=== PATIENT | male | born 1945 | race Caucasian/White ===

== ENCOUNTER → 2018-03-26 07:43 | Outpatient (CLI) | payer MEDICARE, OTHER, SELFPAY ==
[2018-03-26 09:09] LABS: Alanine Aminotransferase 25 IU/L (21-72); Albumin 4.4 g/dL (3.5-5.0); Albumin Globulin Ratio 1.6 (1.0-2.8); Alkaline Phosphatase 73 U/L (38-126); Aspartate Aminotransferase 22 IU/L (17-59); BUN Creatinine Ratio 22.5 (6-22); Bilirubin Total 0.8 mg/dL (0.2-1.3); Blood Urea Nitrogen 18 mg/dL (9-20); Calcium 9.3 mg/dL (8.4-10.2); Carbon Dioxide 32 mmol/L (22-32); Chloride 99 mmol/L (98-107); Cholesterol 171 mg/dL (140-199); Estimated Glomerular Filt Rate > 60.0 mL/min (>60); Globulin 2.8 g/dL (1.7-4.1); Glucose 91 mg/dL (80-110); HDL Cholesterol 54 mg/dL (40-60); HEMOLYSIS < 15 (0-50); LDL Cholesterol Calculated 86 mg/dL (<100); Potassium 4.6 mmol/L (3.4-5.1); Sodium 142 mmol/L (137-145); Total Protein 7.2 g/dL (6.3-8.2); Triglycerides 156 mg/dL (35-150)
== END ==
PROVIDERS: PCP Family Medicine; Visit Provider Family Medicine
DX: E78.5 Hyperlipidemia, unspecified (principal); I10 Essential (primary) hypertension; Z12.5 Encounter for screening for malignant neoplasm of prostate
CPT/HCPCS: 36415; 80053; 80061; G0103

== ENCOUNTER → 2018-04-17 07:51 | Outpatient (CLI) | payer MEDICARE, OTHER, SELFPAY | PROVIDERS: PCP Family Medicine; Visit Provider Family Medicine | DX: F52.21 Male erectile disorder (principal) | CPT/HCPCS: 36415; 84403 ==

== ENCOUNTER → 2018-10-14 08:18 | Outpatient (CLI) | payer MEDICARE, OTHER, SELFPAY ==
[2018-10-14 09:38] LABS: Alanine Aminotransferase 31 IU/L (21-72); Albumin 4.7 g/dL (3.5-5.0); Albumin Globulin Ratio 1.4 (1.0-2.8); Alkaline Phosphatase 64 U/L (38-126); Aspartate Aminotransferase 26 IU/L (17-59); Bilirubin Total 0.8 mg/dL (0.2-1.3); Blood Urea Nitrogen 22 mg/dL (9-20); Calcium 8.4 mg/dL (8.4-10.2); Carbon Dioxide 27 mmol/L (22-32); Chloride 93 mmol/L (98-107); Cholesterol 157 mg/dL (140-199); Estimated Glomerular Filt Rate > 60.0 mL/min (>60); Globulin 3.4 g/dL (1.7-4.1); Glucose 120 mg/dL (80-110); HDL Cholesterol 58 mg/dL (40-60); HEMOLYSIS < 15 (0-50); LDL Cholesterol Calculated 81 mg/dL (<100); Potassium 3.5 mmol/L (3.4-5.1); Sodium 136 mmol/L (137-145); Total Protein 8.1 g/dL (6.3-8.2); Triglycerides 89 mg/dL (35-150)
== END ==
PROVIDERS: PCP Family Medicine; Visit Provider Family Medicine
DX: E78.5 Hyperlipidemia, unspecified (principal); I10 Essential (primary) hypertension
CPT/HCPCS: 36415; 80053; 80061

== ENCOUNTER → 2019-04-16 12:50 | Outpatient (CLI) | payer MEDICARE, OTHER, SELFPAY ==
[2019-04-16 13:15] LABS: Hematocrit 45.7 % (41-53); Hemoglobin 15.8 g/dL (13.5-17.5); Mean Corpuscular HGB Conc 34.4 % (30-36); Mean Corpuscular Hemoglobin 32.9 PG (26-34); Mean Corpuscular Volume 95.6 fL (80-100); Platelet Count 183 X10^3/uL (150-400); Red Blood Cell Count 4.78 X10^6/uL (4.5-5.9); Red Cell Distribution Width 13.8 % (11.6-14.8); White Blood Cell Count 4.7 X10^3/uL (4.5-11.0)
[2019-04-16 13:23] LABS: Add Manual Diff / Slide Review YES
[2019-04-16 13:37] LABS: Hemoglobin A1C% w Est Avg Glu 5.2 % (4.0-6.0)
[2019-04-16 13:46] LABS: Neutrophils Absolute Manual 2115 /uL (3000-5900); RBC Morphology Normal Morphology; Total Cells Counted 100
[2019-04-16 14:03] LABS: Alanine Aminotransferase 26 IU/L (21-72); Albumin 4.5 g/dL (3.5-5.0); Albumin Globulin Ratio 1.5 (1.0-2.8); Alkaline Phosphatase 72 U/L (38-126); Aspartate Aminotransferase 30 IU/L (17-59); BUN Creatinine Ratio 17.8 (6-22); Bilirubin Total 0.8 mg/dL (0.2-1.3); Blood Urea Nitrogen 16 mg/dL (9-20); Calcium 9.4 mg/dL (8.4-10.2); Carbon Dioxide 28 mmol/L (22-32); Chloride 95 mmol/L (98-107); Cholesterol 160 mg/dL (140-199); Estimated Glomerular Filt Rate > 60.0 mL/min (>60); Globulin 3.1 g/dL (1.7-4.1); Glucose 103 mg/dL (80-110); HDL Cholesterol 52 mg/dL (40-60); HEMOLYSIS < 15 (0-50); LDL Cholesterol Calculated 77 mg/dL (<100); Potassium 3.8 mmol/L (3.4-5.1); Sodium 137 mmol/L (137-145); Total Protein 7.6 g/dL (6.3-8.2); Triglycerides 156 mg/dL (35-150)
[2019-04-16 14:27] LABS: Prostate Specific Antigen Scrn 0.828 ng/mL (0.1-4.0)
== END ==
PROVIDERS: PCP Family Medicine; Visit Provider Family Medicine
DX: E78.5 Hyperlipidemia, unspecified (principal); I10 Essential (primary) hypertension; R73.09 Other abnormal glucose; Z12.5 Encounter for screening for malignant neoplasm of prostate
CPT/HCPCS: 36415; 80053; 80061; 83036; 85025; G0103

== ENCOUNTER 2019-04-23 20:01 | Emergency (ER) | payer MEDICARE, OTHER, SELFPAY ==
[2019-04-23] VITALS (9 sets, daily range): BP systolic 122–149; BP diastolic 70–90; PULSE 82–94; RESP 13–21; TEMP 36.6; O2SAT 94–99
--- NOTE | 2019-04-23 20:13 | DI.RAD.S_ITS ---
PROCEDURE: XR CHEST 1V INDICATIONS: chest pain TECHNIQUE: One view of the chest was acquired. COMPARISON: None. FINDINGS: Surgical changes and devices: None. Lungs and pleura: No acute consolidation. Scattered subsegmental atelectasis and/or scarring. No pleural effusion. No pneumothorax. Mediastinum: Mediastinal contours appear normal. Heart size is normal. Bones and chest wall: No suspicious bony lesions. Overlying soft tissues appear unremarkable. Lateral curvature of the spine IMPRESSION: No acute disease Dictated by: Walker Casey M.D. on 04/23/2019 at 20:56 Approved by: Walker Casey M.D. on 04/23/2019 at 20:57
[2019-04-23 20:28] LABS: Add Manual Diff / Slide Review NO; Basophils Absolute Auto 100 /uL (0-100); Basophils Percent Auto 1.2 % (0-2); Eosinophils Absolute Auto 100 /uL (0-450); Eosinophils Percent Auto 1.5 % (2-4); Hematocrit 38.2 % (41-53); Hemoglobin 12.9 g/dL (13.5-17.5); Lymphocytes Absolute Auto 2400 /uL (1100-4500); Lymphocytes Percent Auto 26.3 % (25-40); Mean Corpuscular HGB Conc 33.8 % (30-36); Mean Corpuscular Hemoglobin 32.2 PG (26-34); Mean Corpuscular Volume 95.1 fL (80-100); Monocytes Absolute Auto 800 /uL (0-900); Monocytes Percent Auto 8.4 % (3-14); Neutrophils Absolute Auto 5700 /uL (1500-7000); Neutrophils Percent Auto 62.6 % (50-75); Platelet Count 281 X10^3/uL (150-400); Red Blood Cell Count 4.01 X10^6/uL (4.5-5.9); Red Cell Distribution Width 13.4 % (11.6-14.8); White Blood Cell Count 9.1 X10^3/uL (4.5-11.0)
[2019-04-23 20:36] LABS: Prothrombin Time 11.8 SECONDS (10.1-12.7)
[2019-04-23 20:38] LABS: PTT Partial Thromboplastin Tim 35 SECONDS (26.4-36.2)
[2019-04-23 20:42] LABS: Alanine Aminotransferase 18 IU/L (21-72); Albumin 3.9 g/dL (3.5-5.0); Albumin Globulin Ratio 1.2 (1.0-2.8); Alkaline Phosphatase 71 U/L (38-126); Aspartate Aminotransferase 30 IU/L (17-59); BUN Creatinine Ratio 12.2 (6-22); Bilirubin Total 0.3 mg/dL (0.2-1.3); Blood Urea Nitrogen 11 mg/dL (9-20); Calcium 8.7 mg/dL (8.4-10.2); Carbon Dioxide 24 mmol/L (22-32); Chloride 103 mmol/L (98-107); Creatine Kinase 140 U/L (55-170); Estimated Glomerular Filt Rate > 60.0 mL/min (>60); Globulin 3.2 g/dL (1.7-4.1); Glucose 126 mg/dL (80-110); HEMOLYSIS < 15 (0-50); Lipase 101 U/L (23-300); Potassium 3.8 mmol/L (3.4-5.1); Sodium 139 mmol/L (137-145); Total Protein 7.1 g/dL (6.3-8.2)
[2019-04-23 20:57] LABS: CKMB % Relative Index 2.8 % (1.5-5.0); Creatine Kinase MB 3.86 ng/mL (<2.37)
--- NOTE | 2019-04-23 21:00 | ED.CHESTPAIN ---
HPI - Chest Pain General Chief Complaint: Chest Pain Stated Complaint: INTERMITTENT CHEST DISCOMFORT Time Seen by Provider: 04/23/19 21:00 Source: patient Mode of arrival: Ambulatory Limitations: no limitations History of Present Illness HPI narrative: The patient has been experiencing intermittent episodes of chest pain since last summer. He is having chest pain and dyspnea with exertion. He has had recent escalation of the symptoms. For example he would go to swimming pool, and after minimal exertion he would develop chest pain, dyspnea and heaviness in both arms. Symptoms resolved after about 15-20 minutes of rest. He has seen his doctor, a stress test has been ordered. This evening after dinner he walked about and moved around some pillows, obviously no heavy exertion. He developed chest pain and dyspnea with that level of exertion. Symptoms resolved after 15-20 minutes. He is again asymptomatic upon arrival here. He apparently passed a stress test in 2015. He did that after his brother suffered a sudden cardiac . His father also has history of cardiac disease. He is on medications for hyperlipidemia. He has previously been on lisinopril for hypertension, he is currently on no meds for hypertension. He is not diabetic. He is a nonsmoker. Related Data Home Medications Medication Instructions Recorded Confirmed aspirin 81 mg PO QDAY #0 06/21/17 04/23/19 Previous Rx's Medication Instructions Recorded atorvastatin 40 mg tablet 40 mg PO HS #90 tab 10/14/18 omeprazole 40 mg capsule,delayed 40 mg PO QDAY #90 cap 10/14/18 release sildenafil 50 mg tablet 50 mg PO DAILY PRN #90 tab 10/14/18 Allergies Allergy/AdvReac Type Severity Reaction Status Date / Time cat dander [CAT DANDER] Allergy Severe CHRONIC Verified 04/23/19 15:24 ASTHMATIC BRONCHITIS oyster extract Allergy Mild VOMITING Verified 04/23/19 15:24 [OYSTER EXTRACT] clams Allergy Mild VOMITING Uncoded 04/23/19 15:24 Review of Systems Review of Systems ROS Unobtainable: All systems reviewed & are unremarkable except as noted in HPI and below Constitutional Constitutional: Reports as per HPI, Denies body ache(s), Denies chills, Denies fever(s) and Denies frequent falls Eyes Comments: No complaints ENT Ears, Nose, Mouth, and Throat: Denies change in voice, Denies dizziness, Denies neck pain and Denies sore throat Cardiovascular Cardiovascular: Reports as per HPI, Reports chest pain, Denies diaphoresis, Denies claudication, Denies leg edema, Denies palpitations and Reports dyspnea Respiratory Respiratory: Denies cough and Reports dyspnea Gastrointestinal Gastrointestinal: Denies abdominal pain, Denies change in bowel habits, Denies diarrhea, Denies nausea and Denies vomiting Musculoskeletal Musculoskeletal: Denies back pain, Denies joint swelling, Denies neck pain and Denies numbness Integumentary/Breasts Skin/Breast: Denies pruritus, Denies erythema, Denies rash and Denies wounds Neurologic Neurologic: Denies behavioral changes, Denies confusion, Denies dizziness, Denies frequent falls and Denies numbness Psychiatric Psychiatric: Denies behavioral changes and Denies confusion Endocrine Endocrine: Denies palpitations [facility] Medical History Asthma (Resolved Unknown) Former smoker (Acute) GERD (gastroesophageal reflux disease) (Chronic Unknown) Hemorrhoids (Chronic Unknown) Hiatal hernia (Chronic Unknown) Hyperlipemia (Chronic Unknown) Hypertension (Chronic Unknown) Osteoarthritis (Chronic Unknown) Surgical History Status post appendectomy Status post colectomy Family History (Updated 06/21/17 @ 00:00 by Jessa Mesa PA-C) Brother History of heart disease History of high blood pressure Father Heart disease Cerebrovascular accident (CVA), unspecified mechanism Social History Smoking Status: Former smoker Tobacco: How many years used: 14 alcohol intake: current Family History Brother History of heart disease History of high blood pressure Father Heart disease Cerebrovascular accident (CVA), unspecified mechanism Social History Smoking Status: Former smoker Tobacco: How many years used: 14 alcohol intake: current Exam Initial Vital Signs Initial Vital Signs: Vital Signs Temperature 97.9 F 04/23/19 20:06 Pulse Rate 82 04/23/19 20:06 Respiratory Rate 18 04/23/19 20:06 Blood Pressure 139/80 04/23/19 20:06 Pulse Oximetry 98 04/23/19 20:06 Const General: cooperative and well developed Nutritional Appearance: well nourished Orientation: alert, awake, oriented x3 and not confused [facility] Head: normocephalic and atraumatic Face and sinus: dry mucous membranes Mouth: oral mucosae normal and moist mucous membranes Throat: posterior oropharynx normal, tonsils normal and uvula midline Eyes General: appearance normal, both eyes and all related structures Eyelids: eyelids normal Conjunctivae: conjunctivae normal Sclera: sclerae normal Pupils: PERRL EOM: EOM intact bilaterally Neck Neck: normal visual inspection, trachea midline, No lymphadenopathy and No JVD Chest Chest: normal inspection of the chest Resp Effort & Inspection: normal respiratory effort, able to speak in complete sentences, no respiratory distress and no use of accessory muscles Auscultation: clear to auscultation bilaterally, no rales, no rhonchi and no wheezes Cardio Rate: regular rate Rhythm: regular rhythm Heart Sounds: no click, no gallops, no murmurs and no rubs Pulses: normal peripheral pulses GI Inspection: non-distended Palpation: soft, no hepatosplenomegaly, No guarding, No pulsatile mass and No tender Auscultation: normal bowel sounds Back/Spine/Pelvis Back: No CVA tenderness Cervical Spine: cervical ROM normal Thoracic/Lumbar Spine: thoracic and lumbar spine normal to inspection Skin General: no rashes or lesions noted Neuro General: alert, oriented x3, gait normal and no focal motor deficits Speech: speech normal Course Course Course Narrative: The case was discussed with Dr. Chris, cardiology at [facility]. The patient has received Aspirin and started on Heparin. Transfer had been arranged to [facility] for cardiology care. During his care, the patient developed chest pain at rest. He has dynamic changes on his EKG, revealing ST depression in leads 2 and V3-V6. Nitroglycerin was added to his treatment. He was initially treated with topical nitro, then converted to Nitro drip. He has received metoprolol [address] Plaza, ER doctor at [facility] has been contacted. He will now receive the patient in the ER instead of the patient arrived as a direct admit. Dr. Chris has been re-contacted. The patient will be transferred to [facility] ER, his disposition will be re-evaluated then. Orders Ordered: ED Orders 04/23/19 20:13 XR chest 1V Stat EKG-12 Lead Stat 04/23/19 20:20 BNP [B Type Natriuretic Peptide] Stat Complete Blood Count AUTO DIFF Stat Comprehensive Metabolic Panel Stat Lipase Stat Partial Thromboplastin Time Stat Prothrombin Time INR Stat Troponin & CK Cardiac Panel Stat 04/23/19 21:31 EKG-12 Lead Stat Heparin Sodium/Dextrose (Heparin Drip) 25,000 unit in 500 mls @ 16.982 mls/hr IV CONT NEENA; Protocol Last Admin: 04/23/19 21:34 Dose: 12 units/kg/hr, 16.982 mls/hr Documented by: VIJAYA Heparin Sodium/Dextrose (Heparin Drip) 25,000 unit in 500 mls @ 16.982 mls/hr IV CONT NEENA; Protocol Last Admin: 04/23/19 21:48 Dose: Not Given Documented by: VIJAYA Sodium Chloride (Normal Saline 0.9%) 1,000 mls @ 150 mls/hr IV CONT NEENA Last Admin: 04/23/19 21:47 Dose: 150 mls/hr Documented by: VIJAYA Nitroglycerin (Nitroglycerin) 50 mg in 250 mls @ 1.5 mls/hr IV TITRATE NEENA; Protocol Nitroglycerin (Nitrostat) 0.4 mg SL [id number] PRN PRN Reason: Chest Pain Discontinued Medications Aspirin (Aspirin Chew) 324 mg PO NOW ONE Stop: 04/23/19 21:35 Last Admin: 04/23/19 21:42 Dose: 324 mg Documented by: VIJAYA Aspirin (Aspirin Chew) 324 mg PO NOW ONE Stop: 04/23/19 21:39 Last Admin: 04/23/19 21:50 Dose: Not Given Documented by: VIJAYA Heparin Sodium (Porcine) (Heparin) 5,700 unit 80 unit/kg (5700 unit) IV NOW ONE Stop: 04/23/19 21:30 Last Admin: 04/23/19 21:32 Dose: Not Given Documented by: VIJAYA Heparin Sodium (Porcine) (Heparin) 4,000 unit IV NOW ONE Stop: 04/23/19 21:35 Last Admin: 04/23/19 21:47 Dose: Not Given Documented by: VIJAYA Metoprolol Tartrate (Lopressor) 25 mg PO NOW ONE Stop: 04/23/19 21:43 Nitroglycerin (Nitro-Bid) 1 inch TOP NOW ONE Stop: 04/23/19 21:37 Last Admin: 04/23/19 21:42 Dose: 1 inch Documented by: VIJAYA Nitroglycerin (Nitro-Bid) 1 inch TOP NOW ONE Stop: 04/23/19 21:38 Last Admin: 04/23/19 21:50 Dose: Not Given Documented by: VIJAYA Vital Signs Vital signs: Vital Signs - 8 hr 04/23/19 20:06 04/23/19 20:52 04/23/19 21:00 Temperature 97.9 F Pulse Rate 82 82 86 Respiratory Rate 18 14 21 Blood Pressure 139/80 Blood Pressure [Right Arm] 129/72 122/70 Pulse Oximetry 98 99 97 04/23/19 21:42 Temperature Pulse Rate Respiratory Rate Blood Pressure 144/81 H Blood Pressure [Right Arm] Pulse Oximetry MDM - Chest Pain Lab Data Result diagrams: 04/23/19 20:20 04/23/19 20:20 Labs: Lab Results 04/23/19 04/23/19 04/23/19 Range/Units 20:20 20:20 20:20 WBC 9.1 (4.5-11.0) X10^3/uL RBC 4.01 L (4.5-5.9) X10^6/uL Hgb 12.9 L (13.5-17.5) g/dL Hct 38.2 L (41-53) % MCV 95.1 (80-100) fL MCH 32.2 (26-34) PG MCHC 33.8 (30-36) % RDW 13.4 (11.6-14.8) % Plt Count 281 (150-400) X10^3/uL Neut % (Auto) 62.6 (50-75) % Lymph % (Auto) 26.3 (25-40) % [place] % (Auto) 8.4 (3-14) % Eos % (Auto) 1.5 L (2-4) % Baso % (Auto) 1.2 (0-2) % Neut # (Auto) 5700 (1157-1778) /uL Lymph # (Auto) 2400 (1388-6415) /uL [place] # (Auto) 800 (0-900) /uL Eos # (Auto) 100 (0-450) /uL Baso # (Auto) 100 (0-100) /uL PT 11.8 (10.1-12.7) SECONDS INR 1.0 (0.9-1.3) APTT 35 (26.4-36.2) SECONDS Sodium 139 (137-145) mmol/L Potassium 3.8 (3.4-5.1) mmol/L Chloride 103 (98-107) mmol/L Carbon Dioxide 24 (22-32) mmol/L BUN 11 (9-20) mg/dL Creatinine 0.90 (0.66-1.25) mg/dL Estimated GFR > 60.0 (>60) mL/min BUN/Creatinine Ratio 12.2 (6-22) Glucose 126 H (80-110) mg/dL Calcium 8.7 (8.4-10.2) mg/dL Total Bilirubin 0.3 (0.2-1.3) mg/dL AST 30 (17-59) IU/L ALT 18 L (21-72) IU/L Alkaline Phosphatase 71 (38-126) U/L Total Creatine Kinase 140 (55-170) U/L CK-MB (CK-2) 3.86 H (<2.37) ng/mL CK-MB (CK-2) Rel Index 2.8 (1.5-5.0) % Troponin I 0.297 H* (0.01-0.034) ng/mL B-Natriuretic Peptide (<100) Total Protein 7.1 (6.3-8.2) g/dL Albumin 3.9 (3.5-5.0) g/dL Globulin 3.2 (1.7-4.1) g/dL Albumin/Globulin Ratio 1.2 (1.0-2.8) Lipase 101 (23-300) U/L 04/23/19 Range/Units 20:20 WBC (4.5-11.0) X10^3/uL RBC (4.5-5.9) X10^6/uL Hgb (13.5-17.5) g/dL Hct (41-53) % MCV (80-100) fL MCH (26-34) PG MCHC (30-36) % RDW (11.6-14.8) % Plt Count (150-400) X10^3/uL Neut % (Auto) (50-75) % Lymph % (Auto) (25-40) % [place] % (Auto) (3-14) % Eos % (Auto) (2-4) % Baso % (Auto) (0-2) % Neut # (Auto) (0559-7939) /uL Lymph # (Auto) (6442-9071) /uL [place] # (Auto) (0-900) /uL Eos # (Auto) (0-450) /uL Baso # (Auto) (0-100) /uL PT (10.1-12.7) SECONDS INR (0.9-1.3) APTT (26.4-36.2) SECONDS Sodium (137-145) mmol/L Potassium (3.4-5.1) mmol/L Chloride (98-107) mmol/L Carbon Dioxide (22-32) mmol/L BUN (9-20) mg/dL Creatinine (0.66-1.25) mg/dL Estimated GFR (>60) mL/min BUN/Creatinine Ratio (6-22) Glucose (80-110) mg/dL Calcium (8.4-10.2) mg/dL Total Bilirubin (0.2-1.3) mg/dL AST (17-59) IU/L ALT (21-72) IU/L Alkaline Phosphatase (38-126) U/L Total Creatine Kinase (55-170) U/L CK-MB (CK-2) (<2.37) ng/mL CK-MB (CK-2) Rel Index (1.5-5.0) % Troponin I (0.01-0.034) ng/mL B-Natriuretic Peptide < 100 (<100) Total Protein (6.3-8.2) g/dL Albumin (3.5-5.0) g/dL Globulin (1.7-4.1) g/dL Albumin/Globulin Ratio (1.0-2.8) Lipase (23-300) U/L Imaging Data Chest x-ray: Radiologist's impression: No acute findings ECG Data Attestation: I personally reviewed and interpreted this ECG as follows: (Normal sinus rhythm rate 81 beats per minute. LVH. No significant ST T wave changes. No ectopy. EKG 2. Colon normal sinus rhythm rate 89 beats per minute. He now has ST depression in leads 2, V3 through V6. No ST elevation.) Critical Care Time Critical Care Time Critical Care Time: Yes Total Critical Care Time: 40 Attestation: Time included the patient's initial assessment, evaluation of lab, EKG and radiology data, multiple clinical decisions, discussion of findings with the patient, and consultation with the accepting physician. Discharge Plan Departure Patient Disposition: [facility] Clinical Impression: Non-STEMI (non-ST elevated myocardial infarction) Prescriptions: No Action atorvastatin 40 mg tablet 40 mg PO HS Qty: 90 RF: 3 omeprazole 40 mg capsule,delayed release(DR/EC) 40 mg PO QDAY Qty: 90 RF: 3 sildenafil [Viagra] 50 mg tablet 50 mg PO DAILY PRN (Reason: sexual activity) Qty: 90 RF: 3 aspirin 81 MG tablet,delayed release (DR/EC) 81 mg PO QDAY Qty: 0 RF: 0 Referrals: Melissa Moncada DO [Primary Care Provider] -
[2019-04-23 21:19] LABS: Troponin I 0.297 ng/mL (0.01-0.034)
[2019-04-23] MEDS: HEPARIN 5,000 UNIT/ML VIAL 5000 UNIT (21:34)
[2019-04-23] MEDS: HEPARIN DRIP 25,000 UNIT/500 ML IV.SOLN 16.982 UNIT IV (21:34)
[2019-04-23 21:41] LABS: B Type Natriuretic Peptide < 100 (<100)
[2019-04-23] MEDS: ASPIRIN 81 MG CHEW TAB 324 MG PO (21:42)
[2019-04-23] MEDS: NITROGLYCERIN OINT 1 INCH/GM OINT...G. TOP (21:42)
[2019-04-23] MEDS: SODIUM CHLORIDE 0.9% 1,000 ML 150 ML IV (21:47)
--- NOTE | 2019-04-23 21:51 | PC.NURSE ---
Pt was painfree and then was told he was going to have to go for cardiology r/t pos. troponin. developed 5\10 chest pain w/o nausea/ vomiting/ shortness of breath or diaphorisis. [place] similar to previous days. Repeat EKG was obtained that demonstrated significantly worsening ST depression in multiple leads. Dr. Pryor made aware and called [facility] cardiology back who asked that pt be transferred via 911 (as in [facility] protocol). [address] Pt given ASA, Heparin bolus and gtt as well as po metoprolol. Pt w/ 1 inch ntg past to right chest for continued pain 5/10. At this point [facility] is at bedside w/ report completed. Care transferred.
[2019-04-23] MEDS: METOPROLOL IR 25 MG TABLET PO (21:54)
--- NOTE | 2019-05-03 14:24 | PC.NURSE ---
Late entry: Heparin and NS gtt transferred to [facility] at time @ 2054. when they assumed care of patient. Discontinued from ED.
== END 2019-04-23 22:08 | disposition short-term general hospital (02) ==
PROVIDERS: Emergency Provider Emergency Medicine; Family Provider Family Medicine; PCP Family Medicine
DX: I21.4 Non-ST elevation (NSTEMI) myocardial infarction (principal)
CPT/HCPCS: 36415; 71045; 80053; 82550; 82553; 83690; 83880; 84484; 85025; 85610; 85730; 93005; 96365; 96375; 99283; 99291; 99292; J1644

== ENCOUNTER → 2019-05-13 09:53 | Outpatient (CLI) | payer MEDICARE, OTHER, SELFPAY ==
[2019-05-13 11:42] LABS: Thyroid Stimulating Hormone 9.94 uIU/mL (0.47-4.68)
== END ==
PROVIDERS: Family Provider Family Medicine; PCP Family Medicine; Visit Provider Nurse Practitioner
DX: I21.4 Non-ST elevation (NSTEMI) myocardial infarction (principal); Z79.899 Other long term (current) drug therapy
CPT/HCPCS: 36415; 84443

== ENCOUNTER → 2019-06-26 09:42 | Outpatient (CLI) | payer MEDICARE, OTHER, SELFPAY ==
[2019-06-26 11:56] LABS: Free T4, Direct Thyroxine 0.58 ng/dL (0.78-2.19)
== END ==
PROVIDERS: Hospitalist; PCP Family Medicine; Visit Provider Family Medicine
DX: I25.10 Atherosclerotic heart disease of native coronary artery without angina pectoris (principal)
CPT/HCPCS: 36415; 84439; 84443

== ENCOUNTER → 2019-08-08 07:43 | Outpatient (CLI) | payer MEDICARE, OTHER, SELFPAY ==
[2019-08-08 08:40] LABS: Cholesterol 139 mg/dL (140-199); HDL Cholesterol 37 mg/dL (40-60); LDL Cholesterol Calculated 73 mg/dL (<100); Triglycerides 145 mg/dL (35-150)
[2019-08-08 09:10] LABS: Thyroid Stimulating Hormone 3.95 uIU/mL (0.47-4.68)
== END ==
PROVIDERS: Family Provider Family Medicine; PCP Family Medicine; Visit Provider Internal Medicine Cardiovascular Disease
DX: E78.5 Hyperlipidemia, unspecified (principal); E03.9 Hypothyroidism, unspecified; I10 Essential (primary) hypertension
CPT/HCPCS: 36415; 80061; 84439; 84443; 84481

== ENCOUNTER 2019-08-28 08:30 | Outpatient (RCR) | payer MEDICARE, OTHER, SELFPAY | END 2019-09-17 08:26 | LOC: CAR 08:30 | PROVIDERS: Family Provider Family Medicine; PCP Family Medicine; Visit Provider Physician Assistant Surgical | DX: Z95.1 Presence of aortocoronary bypass graft (principal) | CPT/HCPCS: 93798 ==

== ENCOUNTER → 2020-02-13 06:55 | Outpatient (CLI) | payer MEDICARE, OTHER, SELFPAY ==
[2020-02-13 08:31] LABS: Add Manual Diff / Slide Review NO; Basophils Absolute Auto 100 /uL (0-100); Basophils Percent Auto 0.9 % (0-2); Eosinophils Absolute Auto 100 /uL (0-450); Eosinophils Percent Auto 1.4 % (2-4); Hematocrit 42.3 % (41-53); Hemoglobin 14.3 g/dL (13.5-17.5); Lymphocytes Absolute Auto 2500 /uL (1100-4500); Lymphocytes Percent Auto 39.1 % (25-40); Mean Corpuscular HGB Conc 33.9 % (30-36); Mean Corpuscular Hemoglobin 32.6 PG (26-34); Mean Corpuscular Volume 96.2 fL (80-100); Monocytes Absolute Auto 700 /uL (0-900); Monocytes Percent Auto 11.5 % (3-14); Neutrophils Absolute Auto 3000 /uL (1500-7000); Neutrophils Percent Auto 47.1 % (50-75); Platelet Count 202 X10^3/uL (150-400); Red Cell Distribution Width 13.1 % (11.6-14.8); White Blood Cell Count 6.3 X10^3/uL (4.5-11.0)
[2020-02-13 08:35] LABS: Alanine Aminotransferase 29 IU/L (<50); Albumin 4.4 g/dL (3.5-5.0); Albumin Globulin Ratio 1.6 (1.0-2.8); Alkaline Phosphatase 68 U/L (38-126); Aspartate Aminotransferase 31 IU/L (17-59); BUN Creatinine Ratio 18.9 (6-22); Bilirubin Total 0.7 mg/dL (0.2-1.3); Blood Urea Nitrogen 14 mg/dL (9-20); Calcium 9.6 mg/dL (8.4-10.2); Carbon Dioxide 30 mmol/L (22-32); Chloride 101 mmol/L (98-107); Cholesterol 177 mg/dL (140-199); Estimated Glomerular Filt Rate > 60.0 mL/min (>60); Globulin 2.7 g/dL (1.7-4.1); Glucose 93 mg/dL (80-110); HDL Cholesterol 43 mg/dL (40-60); HEMOLYSIS < 15 (0-50); LDL Cholesterol Calculated 77 mg/dL (<100); Potassium 4.3 mmol/L (3.4-5.1); Sodium 137 mmol/L (137-145); Total Protein 7.1 g/dL (6.3-8.2); Triglycerides 287 mg/dL (35-150)
[2020-02-13 08:55] LABS: Free T4, Direct Thyroxine 0.95 ng/dL (0.78-2.19)
[2020-02-13 09:09] LABS: Thyroid Stimulating Hormone 0.915 uIU/mL (0.47-4.68)
== END ==
PROVIDERS: Family Provider Family Medicine; PCP Family Medicine; Referring Provider Family Medicine; Visit Provider Family Medicine
DX: E03.9 Hypothyroidism, unspecified (principal); E78.5 Hyperlipidemia, unspecified; I10 Essential (primary) hypertension; I25.10 Atherosclerotic heart disease of native coronary artery without angina pectoris; E55.9 Vitamin D deficiency, unspecified
CPT/HCPCS: 36415; 80053; 80061; 82306; 84439; 84443; 84481; 85025

== ENCOUNTER → 2020-08-14 08:46 | Outpatient (CLI) | payer MEDICARE, OTHER, SELFPAY ==
[2020-08-14 09:39] LABS: Add Manual Diff / Slide Review NO; Basophils Absolute Auto 0 /uL (0-100); Basophils Percent Auto 0.6 % (0-2); Eosinophils Absolute Auto 100 /uL (0-450); Eosinophils Percent Auto 1.2 % (2-4); Hematocrit 44.3 % (41-53); Lymphocytes Absolute Auto 2600 /uL (1100-4500); Lymphocytes Percent Auto 38.6 % (25-40); Mean Corpuscular HGB Conc 33.8 % (30-36); Mean Corpuscular Hemoglobin 32.5 PG (26-34); Mean Corpuscular Volume 96.2 fL (80-100); Monocytes Absolute Auto 800 /uL (0-900); Monocytes Percent Auto 12.3 % (3-14); Neutrophils Absolute Auto 3200 /uL (1500-7000); Neutrophils Percent Auto 47.3 % (50-75); Platelet Count 189 X10^3/uL (150-400); Red Blood Cell Count 4.61 X10^6/uL (4.5-5.9); Red Cell Distribution Width 12.9 % (11.6-14.8); White Blood Cell Count 6.8 X10^3/uL (4.5-11.0)
[2020-08-14 10:23] LABS: Alanine Aminotransferase 30 IU/L (<50); Albumin 4.6 g/dL (3.5-5.0); Albumin Globulin Ratio 1.5 (1.0-2.8); Alkaline Phosphatase 70 U/L (38-126); Aspartate Aminotransferase 36 IU/L (17-59); BUN Creatinine Ratio 20.2 (6-22); Bilirubin Total 0.6 mg/dL (0.2-1.3); Blood Urea Nitrogen 17 mg/dL (9-20); Calcium 9.2 mg/dL (8.4-10.2); Carbon Dioxide 32 mmol/L (22-32); Chloride 100 mmol/L (98-107); Cholesterol 198 mg/dL (140-199); Estimated Glomerular Filt Rate > 60.0 mL/min (>60); Globulin 3.1 g/dL (1.7-4.1); Glucose 109 mg/dL (80-110); HDL Cholesterol 51 mg/dL (40-60); HEMOLYSIS < 15 (0-50); LDL Cholesterol Calculated 106 mg/dL (<100); Potassium 4.5 mmol/L (3.4-5.1); Sodium 137 mmol/L (137-145); Total Protein 7.7 g/dL (6.3-8.2); Triglycerides 207 mg/dL (35-150)
[2020-08-14 10:53] LABS: Prostate Specific Antigen Scrn 0.487 ng/mL (0.1-4.0)
== END ==
PROVIDERS: Family Provider Family Medicine; PCP Family Medicine; Referring Provider Family Medicine; Visit Provider Family Medicine
DX: E03.9 Hypothyroidism, unspecified (principal); E78.2 Mixed hyperlipidemia; I10 Essential (primary) hypertension; Z12.5 Encounter for screening for malignant neoplasm of prostate
CPT/HCPCS: 36415; 80053; 80061; 84443; 85025; G0103

== ENCOUNTER → 2020-11-22 09:28 | Outpatient (CLI) | payer MEDICARE, OTHER, SELFPAY ==
[2020-11-22 12:08] LABS: Alanine Aminotransferase 28 IU/L (<50); Albumin 4.3 g/dL (3.5-5.0); Albumin Globulin Ratio 1.6 (1.0-2.8); Alkaline Phosphatase 72 U/L (38-126); Aspartate Aminotransferase 31 IU/L (17-59); BUN Creatinine Ratio 15.9 (6-22); Bilirubin Total 0.3 mg/dL (0.2-1.3); Blood Urea Nitrogen 13 mg/dL (9-20); Calcium 9.4 mg/dL (8.4-10.2); Carbon Dioxide 28 mmol/L (22-32); Chloride 101 mmol/L (98-107); Cholesterol 167 mg/dL (140-199); Estimated Glomerular Filt Rate > 60.0 mL/min (>60); Globulin 2.7 g/dL (1.7-4.1); Glucose 110 mg/dL (80-110); HDL Cholesterol 53 mg/dL (40-60); HEMOLYSIS < 15 (0-50); LDL Cholesterol Calculated 86 mg/dL (<100); Potassium 4.8 mmol/L (3.4-5.1); Sodium 139 mmol/L (137-145); Triglycerides 142 mg/dL (35-150)
== END ==
PROVIDERS: Family Provider Family Medicine; PCP Family Medicine; Referring Provider Internal Medicine Cardiovascular Disease; Visit Provider Internal Medicine Cardiovascular Disease
DX: E78.5 Hyperlipidemia, unspecified (principal)
CPT/HCPCS: 36415; 80053; 80061

== ENCOUNTER → 2021-04-21 07:55 | Outpatient (CLI) | payer MEDICARE, OTHER, SELFPAY ==
[2021-04-21 10:23] LABS: BUN Creatinine Ratio 15.6 (6-22); Blood Urea Nitrogen 12 mg/dL (9-20); Calcium 9.1 mg/dL (8.4-10.2); Carbon Dioxide 29 mmol/L (22-32); Chloride 101 mmol/L (98-107); Estimated Glomerular Filt Rate > 60.0 mL/min (>60); Glucose 98 mg/dL (80-110); HEMOLYSIS < 15 (0-50); Potassium 4.6 mmol/L (3.4-5.1); Sodium 136 mmol/L (137-145)
== END ==
PROVIDERS: Family Provider Family Medicine; PCP Family Medicine; Referring Provider Internal Medicine Cardiovascular Disease; Visit Provider Internal Medicine Cardiovascular Disease
DX: I10 Essential (primary) hypertension (principal)
CPT/HCPCS: 36415; 80048

== ENCOUNTER → 2021-12-08 13:44 | Outpatient (CLI) | payer MEDICARE, OTHER, SELFPAY ==
--- NOTE | 2021-12-08 | DI.ECHO.S_ITS ---
[facility] +---------+ : : [address] [address] : : : : [id number] : : : : Phone: [phone] Echocardiogram Report + + :Name: CARMLE GIRALDO Study Date: 12/08/2021 Height: 65 in : :[facility] ReadingLocation: Weight: 160 lb : : Gender: Male BSA: 1.8 m2 : :: 1945 Age: 76 yrs BP: 150/79 mmHg: :Reason For Study: Murmur : :Ordering Physician: ALEX, : :DORA Ortiz Performed By: Eliud Holloway : :Referring: DORA JOHNSON : + + Interpretation Summary The left ventricle is normal in size and wall thickness. Left ventricular systolic function is normal. The ejection fraction is estimated to be 55-60%. There are no focal wall motion abnormalities. The right ventricle is normal in size and function. Pulmonary artery pressures cannot be estimated because of the lack of a measurable TR jet velocity. Both atria are normal in size. There is mild aortic stenosis. There is no other significant valvular heart disease. The aortic root is normal size. Procedure: A two-dimensional transthoracic echocardiogram with color flow and Doppler was performed. The study quality was technically adequate. There is no prior echocardiogram noted for this patient. Left Ventricle: The left ventricle is normal in size and wall thickness. Left ventricular systolic function is normal. The ejection fraction is estimated to be 55-60%. There are no focal wall motion abnormalities. Diastolic parameters suggest probable normal left ventricular diastolic function and normal filling pressures. Right Ventricle: The right ventricle is normal in size and function. Atria: Both atria are normal in size. The interatrial septum grossly appears intact with no obvious evidence for an atrial septal defect. Mitral Valve: There is mild mitral annular calcification. There is trace mitral regurgitation. Aortic Valve: The aortic valve is mildly calcified. There is mild aortic stenosis. The aortic valve mean gradient is 10 mmHg. No aortic regurgitation is present. Tricuspid Valve: The tricuspid valve is normal in structure and function. There is a trace or physiologic amount of tricuspid regurgitation. Pulmonary artery pressures cannot be estimated because of the lack of a measurable TR jet velocity. Pulmonic Valve: The pulmonic valve is normal in structure and function. There is trace pulmonic regurgitation. There is no other significant valvular heart disease. Great Vessels: The aortic root is normal size. The dimensions of the ascending aorta are normal. The IVC is of normal diameter and collapses greater than 50% with a sniff. This suggests a low right atrial pressure of 3 mm Hg. Pericardium/ Pleura There is no pericardial effusion. There is no pleural effusion. MMode/2D Measurements & Calculations LVIDd: 4.7 cm LVOT diam: 2.0 cm LVIDs: 3.3 cm Ao root diam: 2.8 cm FS: 29.8 % asc Aorta Diam: 3.1 cm IVSd: 1.1 cm LVPWd: 1.0 cm LV fong. diameter/BSA (cm/m^2): 2.6 LV sys. diameter/BSA (cm/m^2): 1.8 LA dimension: 3.3 cm RA long axis: 4.7 cm LA A2 area: 18.8 cm2 LA A4 area: 13.9 cm2 LA length (vol): 5.6 cm LA vol: 39.8 ml LA vol index: 22.1 ml/m2 TAPSE_phl: 2.1 cm Doppler Measurements & Calculations Ao V2 max: 209.7 cm/sec LVOT Max Daniel: 99.2 cm/sec Ao V2 mean: 147.5 cm/sec LV V1 max P.9 mmHg Ao max P.0 mmHg LV V1 VTI: 22.1 cm Ao mean P.0 mmHg RENATO(I,D): 1.6 cm2 Ao V2 VTI: 43.7 cm RENATO(V,D): 1.5 cm2 sev ratio: 0.51 RENATO indexed to BSA (cm^2/m^2): 0.88 MV E max daniel: 93.4 cm/sec SV(LVOT): 69.4 ml MV A max daniel: 67.3 cm/sec MV E/A: 1.4 Med Peak E' Daniel: 6.9 cm/sec E/E' med: 13.6 Lat Peak E' Daniel: 9.4 cm/sec E/E' lat: 10.0 E/e' average: 11.8 MV dec time: 0.22 sec AV VR_phl: 0.47 MV P1/2t-pr_phl: 64.0 msec RENATO(VTI)/BSA_phl: 0.88 Reading Physician:04:49 PM
== END ==
PROVIDERS: Family Provider Family Medicine; PCP Family Medicine; Referring Provider Nurse Practitioner; Visit Provider Nurse Practitioner
DX: I35.0 Nonrheumatic aortic (valve) stenosis (principal); R01.1 Cardiac murmur, unspecified
CPT/HCPCS: 93306

== ENCOUNTER → 2021-12-28 08:58 | Outpatient (CLI) | payer MEDICARE, OTHER, SELFPAY ==
[2021-12-28 11:43] LABS: Alanine Aminotransferase 23 IU/L (<50); Albumin 4.3 g/dL (3.5-5.0); Albumin Globulin Ratio 1.5 (1.0-2.8); Alkaline Phosphatase 68 U/L (38-126); Aspartate Aminotransferase 29 IU/L (17-59); BUN Creatinine Ratio 19.3 (6-22); Bilirubin Total 0.7 mg/dL (0.2-1.3); Blood Urea Nitrogen 16 mg/dL (9-20); Calcium 8.8 mg/dL (8.4-10.2); Carbon Dioxide 24 mmol/L (22-32); Chloride 100 mmol/L (98-107); Cholesterol 163 mg/dL (140-199); Estimated Glomerular Filt Rate > 60 mL/min (>60); Globulin 2.8 g/dL (1.7-4.1); Glucose 105 mg/dL (80-110); HDL Cholesterol 50 mg/dL (40-60); HEMOLYSIS < 15 (0-50); LDL Cholesterol Calculated 81 mg/dL (<100); Potassium 4.3 mmol/L (3.4-5.1); Sodium 135 mmol/L (137-145); Total Protein 7.1 g/dL (6.3-8.2); Triglycerides 160 mg/dL (35-150)
== END ==
PROVIDERS: Family Provider Family Medicine; PCP Family Medicine; Referring Provider Nurse Practitioner; Visit Provider Nurse Practitioner
DX: I10 Essential (primary) hypertension (principal); E78.5 Hyperlipidemia, unspecified
CPT/HCPCS: 36415; 80053; 80061

== ENCOUNTER → 2022-09-18 08:26 | Outpatient (CLI) | payer MEDICARE, OTHER, SELFPAY ==
[2022-09-18 09:46] LABS: Alanine Aminotransferase 28 IU/L (<50); Albumin 4.6 g/dL (3.5-5.0); Albumin Globulin Ratio 1.6 (1.0-2.8); Alkaline Phosphatase 67 U/L (38-126); Aspartate Aminotransferase 28 IU/L (17-59); BUN Creatinine Ratio 15.2 (6-22); Bilirubin Total 0.6 mg/dL (0.2-1.3); Blood Urea Nitrogen 14 mg/dL (9-20); Calcium 9.2 mg/dL (8.4-10.2); Carbon Dioxide 26 mmol/L (22-32); Chloride 98 mmol/L (98-107); Cholesterol 157 mg/dL (140-199); Estimated Glomerular Filt Rate > 60 mL/min (>60); Globulin 2.8 g/dL (1.7-4.1); Glucose 106 mg/dL (80-110); HDL Cholesterol 51 mg/dL (40-60); HEMOLYSIS < 15 (0-50); LDL Cholesterol Calculated 63 mg/dL (<100); Potassium 4.8 mmol/L (3.4-5.1); Sodium 134 mmol/L (137-145); Total Protein 7.4 g/dL (6.3-8.2); Triglycerides 215 mg/dL (35-150)
== END ==
PROVIDERS: Family Provider Family Medicine; PCP Family Medicine; Referring Provider Nurse Practitioner; Visit Provider Nurse Practitioner
DX: E78.5 Hyperlipidemia, unspecified (principal); I10 Essential (primary) hypertension
CPT/HCPCS: 36415; 80053; 80061

== ENCOUNTER 2022-10-03 06:43 | Day surgery (SDC) | payer MEDICARE, OTHER, SELFPAY ==
--- NOTE | 2022-10-03 | PATH_ITS ---
[facility] Accession Number: [id number] No. of containers..01 Tissue . 01 Material submitted: . esophagus, E-G Junction - GE JUNCTION BIOPSY . 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 Negative for dysplasia and malignancy. [facility] 10/09/2022 0938 Local . 01 Electronically signed: . Tamra Campos MD, Pathologist NPI- [id number] . 01 Gross description: . GE JUNCTION BIOPSY: Received in formalin are 2 fragment(s) of wade, soft tissue measuring 0.3 x 0.2 x 0.1 cm to 0.2 x 0.1 x 0.1 cm submitted entirely in 1 cassette(s) /CPE 10/05/2022 0724 Local . 01 Pathologist provided ICD-10: K22.70 . 01 CPT . 069937 Specimen Comment: A courtesy copy of this report has been sent to [phone] Performed at: 01 [facility] [address] [place] [address] [address] [facility], [place], [place] [id number] MD Luis Yuan MD Phone: [phone]
[2022-10-03 07:15] VITALS: BP 137/81; PULSE 81; RESP 18; TEMP 36.4; O2SAT 98; BMI 58.6
[2022-10-03] MEDS: LACTATED RINGERS 1,000 ML 200 ML IV (07:30)
--- NOTE | 2022-10-03 07:45 | P.HP_ITS ---
History of Present Illness History of Present Illness Date Patient Seen: 10/03/22 Time Patient Seen: 07:45 Chief complaint: SDC Narrative: The patient presents for colorectal screening and EGD. Previous colonoscopy 5 years ago significant for benign polyps. Long history of GERD which he takes omeprazole occasionally has breakthrough episodes.. No personal or family history of colon cancer. On further history denies any recent gastrointestinal symptoms. No nausea, vomiting, abdominal pain, loss of appetite, unexplained weight loss, change in bowel habits, or blood per rectum. Patient History Medical History (Updated 03/31/22 @ 10:58 by Gilberto Gomez DO) Asthma (Unknown) Excessive cerumen in both ear canals Former smoker GERD (gastroesophageal reflux disease) (Unknown) Hemorrhoids (Unknown) Hiatal hernia (Unknown) Hx of colonic polyps Hyperlipemia (Unknown) Hypertension (Unknown) Onychomycosis Osteoarthritis (Unknown) Surgical History Status post appendectomy Status post colectomy Family & Social History Family History Brother History of heart disease History of high blood pressure Father Heart disease Cerebrovascular accident (CVA), unspecified mechanism Social History: household members spouse Tobacco & Substance use: Smoking Status Former smoker alcohol intake current alcohol intake frequency 3 or more drinks per day Substance Use Type does not use Meds Home Medications and Allergies Home Medications Medication Instructions Recorded Confirmed Type aspirin 81 mg tablet,delayed 162 mg PO QDAY #0 tabs 05/20/19 10/03/22 History release metoprolol tartrate 25 mg tablet 25 mg PO DAILY 05/20/19 10/03/22 History sildenafil 50 mg tablet (Viagra) 50 mg PO DAILY PRN sexual activity 03/28/22 10/03/22 Rx #90 tabs omeprazole 40 mg capsule,delayed 40 mg PO DAILY #90 caps 05/23/22 10/03/22 Rx release levothyroxine 50 mcg tablet See Rx Instructions .Route 08/16/22 10/03/22 Rx .COMPLEX #90 tabs ramipril 2.5 mg capsule 2.5 mg PO 3XD 10/03/22 10/03/22 History rosuvastatin 40 mg tablet 40 mg PO DAILY 10/03/22 10/03/22 History Allergies Allergy/AdvReac Type Severity Reaction Status Date / Time cat dander [CAT DANDER] Allergy Severe CHRONIC Verified 10/03/22 07:26 ASTHMATIC BRONCHITIS oyster extract Allergy Mild VOMITING Verified 10/03/22 07:26 [OYSTER EXTRACT] clams Allergy Mild VOMITING Uncoded 10/03/22 07:26 Exam Vital Signs (past 8 hours): - 10/03/22 07:15 Temperature 97.6 F Pulse Rate 81 Respiratory Rate 18 Blood Pressure 137/81 Pulse Oximetry 98 Oxygen Delivery Method Room Air Oxygen Delivery Method Room Air Narrative Exam Narrative: General adult man alert oriented no acute distress Abdomen soft nontender nondistended Assessment & Plan Assessment & Plan narrative: 77-year-old man personal history of colonic polyps and longstanding GERD here for screening colonoscopy and EGD.. Technical details were discussed. Risks, benefits, alternatives explained. Risks including but not limited to myocardial infarction, aspiration, bleeding, pain, missed lesion, incomplete examination, need for further radiographic studies, intestinal perforation, and need for major abdominal surgery were discussed. All questions were answered to their sa tisfaction, and they are in agreement with this plan. Time Spent With Patient Critical Care time: I spent a total of [] minutes of critical care time on this patient's care today; this time is exclusive of procedural time.
[2022-10-03 08:18] VITALS: BP 143/71; PULSE 78; RESP 16; TEMP 36.9; O2SAT 95
[2022-10-03 08:23] VITALS: BP 121/71; PULSE 78; RESP 20; O2SAT 95
--- NOTE | 2022-10-03 08:25 | PM.OP.EC ---
Operative Date/Time/Diagnoses Date of procedure: 10/03/22 Time of procedure: 08:26 Pre-op diagnosis: GERD Personal history of colonic polyps Post-op diagnosis: same Procedure & Clinicians Study performed: Esophagoduodenoscopy and colonoscopy Same procedure as scheduled: Yes Indications: Chronic GERD, personal history of colonic polyps Surgeon: Petr Lopez Procedure Notes Procedure in detail: The history and physical was performed/updated and the patient is ASA class is 3. The procedure was discussed in detail with the patient. Potential risks complications including infection, bleeding, missed diagnosis, perforation, need for surgery, and were explained. Their questions were answered and informed consent was obtained. Patient placed in left lateral decubitus position. Time out was performed. Procedural sedation was administered by anesthesia. A bite block was placed. the scope was inserted into the mouth and advanced through the esophagus and into the stomach. The pylorus was intubated and the duodenum was normal to the 2nd portion. The scope was retroflexed within the stomach and there was a small hiatal hernia. No ulcers, or gastritis. The scope was withdrawn into the esophagus the Z line was seen at 35 cm from the incisions. There was no Che's esophagitis or masses or strictures. Biopsies of the GE junction were performed with forceps Stomach was desufflated and scope removed. Patient tolerated procedure well. Examination began with a thorough inspection of the perianal area there was no evidence of fissures, fistulae, external hemorrhoids or cutaneous malignancy. The colonoscopy scope was then placed into the anal canal and was advanced to the cecum, which was identified by the ileocolonic anastomosis.. The scope was then slowly withdrawn examining colon thoroughly in all directions, irrigating it of any residual stool. The anastomosis was normal in its appearance. There were no masses polyps or inflammation within the colon. Quality of the preparation was excellent. The withdrawal time was 6 minutes. Specimen(s): other (GE junction) Complications: none Impression: Normal esophagoduodenoscopy and colonoscopy Post-procedure Recommendations: High fiber diet Plan for aftercare: No further colonoscopy is necessary Disposition: same day surgery
[2022-10-03 08:28] VITALS: BP 131/85; PULSE 79; RESP 20; O2SAT 95
[2022-10-03 08:33] VITALS: BP 138/80; PULSE 74; RESP 16; O2SAT 95
[2022-10-03 08:34] VITALS: BP 133/71; PULSE 76; RESP 18; O2SAT 95
== END 2022-10-03 09:30 | disposition home or self-care (01) ==
PROVIDERS: Family Provider Family Medicine; PCP Family Medicine; Referring Provider Surgery; Visit Provider Surgery
PROC: 0DJ08ZZ Inspection of Upper Intestinal Tract, Via Natural or Artificial Opening Endoscopic (ICD-10-PCS; CPT 43235; principal; 2022-10-03 07:45)
PROC: 0DJD8ZZ Inspection of Lower Intestinal Tract, Via Natural or Artificial Opening Endoscopic (ICD-10-PCS; CPT 45378; 2022-10-03 07:45)
DX: Z12.11 Encounter for screening for malignant neoplasm of colon (principal); Z86.010 Personal history of colon polyps; K21.9 Gastro-esophageal reflux disease without esophagitis; K44.9 Diaphragmatic hernia without obstruction or gangrene; K22.70 Barrett's esophagus without dysplasia
CPT/HCPCS: 43239; G0105; J2704

== ENCOUNTER → 2023-06-18 08:08 | Outpatient (CLI) | payer MEDICARE, OTHER, SELFPAY ==
[2023-06-18 08:34] LABS: Add Manual Diff / Slide Review NO; Basophils Absolute Auto 100 /uL (0-100); Basophils Percent Auto 1.2 % (0-2); Eosinophils Absolute Auto 100 /uL (0-450); Eosinophils Percent Auto 1.7 % (2-4); Hematocrit 38.7 % (41-53); Hemoglobin 13.5 g/dL (13.5-17.5); Lymphocytes Absolute Auto 1900 /uL (1100-4500); Lymphocytes Percent Auto 29.6 % (25-40); Mean Corpuscular HGB Conc 34.8 % (30-36); Mean Corpuscular Hemoglobin 32.7 PG (26-34); Monocytes Absolute Auto 700 /uL (0-900); Monocytes Percent Auto 10.6 % (3-14); Neutrophils Absolute Auto 3500 /uL (1500-7000); Neutrophils Percent Auto 56.9 % (50-75); Platelet Count 197 X10^3/uL (150-400); Red Blood Cell Count 4.12 X10^6/uL (4.5-5.9); Red Cell Distribution Width 13.3 % (11.6-14.8); White Blood Cell Count 6.2 X10^3/uL (4.5-11.0)
[2023-06-18 08:45] LABS: Alanine Aminotransferase 26 IU/L (<50); Albumin 4.5 g/dL (3.5-5.0); Albumin Globulin Ratio 1.5 (1.0-2.8); Alkaline Phosphatase 63 U/L (38-126); Aspartate Aminotransferase 32 IU/L (17-59); Bilirubin Total 0.7 mg/dL (0.2-1.3); Blood Urea Nitrogen 18 mg/dL (9-20); Calcium 9.7 mg/dL (8.4-10.2); Carbon Dioxide 28 mmol/L (22-32); Chloride 97 mmol/L (98-107); Cholesterol 170 mg/dL (140-199); Estimated Glomerular Filt Rate > 60 mL/min (>60); Globulin 3.1 g/dL (1.7-4.1); Glucose 103 mg/dL (80-110); HDL Cholesterol 51 mg/dL (40-60); HEMOLYSIS < 15 (0-50); LDL Cholesterol Calculated 87 mg/dL (<100); Sodium 134 mmol/L (137-145); Total Protein 7.6 g/dL (6.3-8.2); Triglycerides 160 mg/dL (35-150)
[2023-06-18 09:14] LABS: Prostate Specific Antigen Scrn 0.494 ng/mL (0.1-4.0)
== END ==
PROVIDERS: Family Provider Family Medicine; PCP Family Medicine; Referring Provider Family Medicine; Visit Provider Family Medicine
DX: Z12.5 Encounter for screening for malignant neoplasm of prostate (principal); I10 Essential (primary) hypertension; E03.9 Hypothyroidism, unspecified; E78.5 Hyperlipidemia, unspecified; F52.21 Male erectile disorder
CPT/HCPCS: 36415; 80053; 80061; 84443; 85025; G0103

== ENCOUNTER → 2023-08-08 08:10 | Outpatient (CLI) | payer MEDICARE, OTHER, SELFPAY ==
[2023-08-08 09:11] LABS: Cholesterol 151 mg/dL (140-199); HDL Cholesterol 55 mg/dL (40-60); LDL Cholesterol Calculated 68 mg/dL (<100); Triglycerides 140 mg/dL (35-150)
== END ==
LOC: LAB 08:12
PROVIDERS: Family Provider Family Medicine; PCP Family Medicine; Referring Provider Nurse Practitioner Acute Care; Visit Provider Nurse Practitioner Acute Care
DX: E78.5 Hyperlipidemia, unspecified (principal)
CPT/HCPCS: 36415; 80061

== ENCOUNTER → 2024-02-08 15:26 | Outpatient (CLI) | payer MEDICARE, OTHER, SELFPAY ==
--- NOTE | 2024-02-08 | DI.MRI.S_ITS ---
PROCEDURE: MR LUMBAR SPINE WO CON INDICATIONS: LOW BACK PAIN TECHNIQUE: Noncontrast sagittal T1 spin echo and T2 fast echo, sagittal STIR, and T2 fast spin echo through the lumbar spine. In cases with scoliosis, additional coronal T2 fast spin echo may be performed. COMPARISON: [facility], , L-SPINE WITHOUT CONTRAST, 09/28/2017, 13:00. FINDINGS: Image quality: Excellent. Alignment and Curvature: There is 5 mm anterolisthesis of L4 on L5. 4 mm retrolisthesis of L1 on L2 is also seen. 2-3 mm retrolisthesis of L2 on L3 is also noted. Mild S shaped scoliosis of lower thoracic and lumbar spine is seen. Bone Marrow: There is no gross marrow edema. No acute vertebral body compression fractures. Spinal Cord: Conus medullaris terminates at the T12-L1 level. Visualized cord demonstrates normal signal and size. Paraspinous Soft Tissues: No paravertebral masses. T12-L1: Normal appearance. L1-L2: Loss of disc signal and disc height. Broad-based disc bulge and bilateral facet arthrosis with hypertrophy of ligamentum flavum is seen causing [id number] central canal stenosis and severe right-sided neural foraminal narrowing. Bulging disc likely contacting exiting right L1 nerve root. L2-L3: Loss of disc height and disc desiccation with Modic type 1 degenerative endplate changes. Broad-based disc bulge and bilateral facet arthrosis with broad-based disc bulge and bilateral facet arthrosis causing moderate central canal stenosis and severe bilateral neural foraminal narrowing. Bulging disc is seen contacting bilateral L2 and L3 nerve roots. L3-L4: Loss of disc height and disc signal. Broad-based disc bulge and bilateral facet arthrosis with hypertrophy of ligamentum flavum causing moderate central canal stenosis and right worse than left bilateral severe neural foraminal narrowing. Bulging disc is seen contacting bilateral L3 and L4 nerve roots. L4-L5: Loss of disc height and disc signal. Broad-based disc bulge and bilateral facet arthrosis with hypertrophy of ligamentum flavum with mild central canal stenosis and severe bilateral neural foraminal narrowing. Bulging disc is seen contacting bilateral exiting L4 nerve roots. L5-S1: Loss of disc signal. Central to left-sided disc bulge and bilateral facet arthrosis causing moderate left-sided neural foraminal narrowing is seen. No significant central canal stenosis. IMPRESSION: 1. S shaped scoliosis of thoracolumbar spine. Grade 1 spondylolisthesis at L1-2, L2-3 and L4-5 levels. No acute compression fracture. 2. 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 Dictated by: Metr Seals M.D. on 02/08/2024 at 17:08 Approved by: Mert Seals M.D. on 02/08/2024 at 17:13
== END ==
PROVIDERS: Family Provider Family Medicine; PCP Family Medicine; Referring Provider Physician Assistant Surgical; Visit Provider Physician Assistant Surgical
DX: M47.816 Spondylosis without myelopathy or radiculopathy, lumbar region (principal); M47.817 Spondylosis without myelopathy or radiculopathy, lumbosacral region; M51.36 Other intervertebral disc degeneration, lumbar region; M51.37 Other intervertebral disc degeneration, lumbosacral region; M41.9 Scoliosis, unspecified; M43.16 Spondylolisthesis, lumbar region; M48.061 Spinal stenosis, lumbar region without neurogenic claudication; M48.07 Spinal stenosis, lumbosacral region
CPT/HCPCS: 72148

== ENCOUNTER → 2024-03-03 07:39 | Outpatient (CLI) | payer MEDICARE, OTHER, SELFPAY ==
--- NOTE | 2024-03-03 | DI.US.S_ITS ---
PROCEDURE: US CAROTID DOPPLER BI INDICATIONS: STENOSIS TECHNIQUE: Color and pulse Doppler interrogation was performed of both carotid systems, with image documentation and velocity measurements. COMPARISON: None. FINDINGS: Stenosis calculations are based on SRU (Society of Radiologists in Ultras[employer]) criteria. The flow velocities and the arterial waveforms are normal within both carotid arterial systems. Atherosclerotic plaque is seen on both sides. The estimated degree of internal carotid artery stenosis is less than 50%. Antegrade flow is confirmed within both vertebral arteries. The right brachial blood pressure measures 160/82 on the left brachial blood pressure measures 152/77. IMPRESSION: No hemodynamically significant stenosis is seen. Atherosclerotic plaque is noted bilaterally. Arterial hypertension measured at the time of this study. Dictated by: Mikie Gaines M.D. on 03/03/2024 at 11:07 Approved by: Mikie Gaines M.D. on 03/03/2024 at 11:09
== END ==
PROVIDERS: Family Provider Family Medicine; PCP Family Medicine; Referring Provider Internal Medicine Cardiovascular Disease; Visit Provider Internal Medicine Cardiovascular Disease
DX: I65.23 Occlusion and stenosis of bilateral carotid arteries (principal)
CPT/HCPCS: 93880

== ENCOUNTER → 2024-06-30 08:15 | Outpatient (CLI) | payer MEDICARE, OTHER, SELFPAY ==
[2024-06-30 09:04] LABS: Add Manual Diff / Slide Review NO; Basophils Absolute Auto 0 /uL (0-100); Basophils Percent Auto 0.6 % (0-2); Eosinophils Absolute Auto 100 /uL (0-450); Eosinophils Percent Auto 0.9 % (2-4); Hematocrit 36.2 % (41-53); Hemoglobin 12.3 g/dL (13.5-17.5); Lymphocytes Absolute Auto 1400 /uL (1100-4500); Lymphocytes Percent Auto 18.4 % (25-40); Mean Corpuscular Hemoglobin 33.1 PG (26-34); Mean Corpuscular Volume 97.4 fL (80-100); Monocytes Absolute Auto 700 /uL (0-900); Monocytes Percent Auto 8.9 % (3-14); Neutrophils Absolute Auto 5500 /uL (1500-7000); Neutrophils Percent Auto 71.2 % (50-75); Platelet Count 206 X10^3/uL (150-400); Red Blood Cell Count 3.72 X10^6/uL (4.5-5.9); Red Cell Distribution Width 12.8 % (11.6-14.8); White Blood Cell Count 7.7 X10^3/uL (4.5-11.0)
[2024-06-30 09:21] LABS: Alanine Aminotransferase 22 IU/L (<50); Albumin 4.4 g/dL (3.5-5.0); Albumin Globulin Ratio 1.7 (1.0-2.8); Alkaline Phosphatase 66 U/L (38-126); Aspartate Aminotransferase 27 IU/L (17-59); BUN Creatinine Ratio 16.3 (6-22); Bilirubin Total 0.5 mg/dL (0.2-1.3); Blood Urea Nitrogen 23 mg/dL (9-20); Calcium 9.4 mg/dL (8.4-10.2); Carbon Dioxide 27 mmol/L (22-32); Chloride 98 mmol/L (98-107); Cholesterol 148 mg/dL (140-199); Estimated Glomerular Filt Rate 52 mL/min (>60); Globulin 2.6 g/dL (1.7-4.1); Glucose 112 mg/dL (80-110); HDL Cholesterol 52 mg/dL (40-60); HEMOLYSIS < 15 (0-50); LDL Cholesterol Calculated 63 mg/dL (<100); Sodium 132 mmol/L (137-145); Triglycerides 166 mg/dL (35-150)
[2024-06-30 09:23] LABS: Potassium 5.6 mmol/L (3.4-5.1)
[2024-06-30 09:51] LABS: Prostate Specific Antigen Scrn 0.312 ng/mL (0.1-4.0)
[2024-06-30 09:53] LABS: TSH w/ Reflex to FT4 0.03 uIU/mL (0.47-4.68)
[2024-06-30 10:36] LABS: Free T4, Direct Thyroxine 0.97 ng/dL (0.78-2.19)
== END ==
PROVIDERS: PCP Family Medicine; Referring Provider Family Medicine; Visit Provider Family Medicine
DX: I10 Essential (primary) hypertension (principal); Z12.5 Encounter for screening for malignant neoplasm of prostate; E78.5 Hyperlipidemia, unspecified; E03.9 Hypothyroidism, unspecified; M54.50 Low back pain, unspecified; G89.29 Other chronic pain
CPT/HCPCS: 36415; 80053; 80061; 84439; 84443; 85025; G0103

== ENCOUNTER → 2024-07-22 08:15 | Outpatient (CLI) | payer MEDICARE, OTHER, SELFPAY ==
[2024-07-22 08:54] LABS: Add Manual Diff / Slide Review NO; Basophils Absolute Auto 100 /uL (0-100); Basophils Percent Auto 0.9 % (0-2); Eosinophils Absolute Auto 100 /uL (0-450); Eosinophils Percent Auto 1.2 % (2-4); Hemoglobin 12.2 g/dL (13.5-17.5); Lymphocytes Absolute Auto 1800 /uL (1100-4500); Mean Corpuscular Volume 96.9 fL (80-100); Monocytes Absolute Auto 800 /uL (0-900); Monocytes Percent Auto 9.6 % (3-14); Neutrophils Absolute Auto 6000 /uL (1500-7000); Neutrophils Percent Auto 68.3 % (50-75); Platelet Count 242 X10^3/uL (150-400); Red Blood Cell Count 3.71 X10^6/uL (4.5-5.9); Red Cell Distribution Width 12.8 % (11.6-14.8); White Blood Cell Count 8.8 X10^3/uL (4.5-11.0)
[2024-07-22 09:43] LABS: TSH w/ Reflex to FT4 0.13 uIU/mL (0.47-4.68)
[2024-07-22 11:02] LABS: Free T4, Direct Thyroxine 0.92 ng/dL (0.78-2.19)
== END ==
LOC: LAB 08:17
PROVIDERS: PCP Family Medicine; Referring Provider Family Medicine; Visit Provider Family Medicine
DX: D64.9 Anemia, unspecified (principal); E03.9 Hypothyroidism, unspecified
CPT/HCPCS: 36415; 84439; 84443; 85025

== ENCOUNTER → 2024-08-01 15:32 | Outpatient (CLI) | payer MEDICARE, OTHER, SELFPAY ==
[2024-08-01 16:29] LABS: Alanine Aminotransferase 25 IU/L (<50); Albumin 4.3 g/dL (3.5-5.0); Albumin Globulin Ratio 1.4 (1.0-2.8); Alkaline Phosphatase 64 U/L (38-126); Aspartate Aminotransferase 31 IU/L (17-59); BUN Creatinine Ratio 13.8 (6-22); Bilirubin Total 0.6 mg/dL (0.2-1.3); Blood Urea Nitrogen 18 mg/dL (9-20); Calcium 9.1 mg/dL (8.4-10.2); Carbon Dioxide 24 mmol/L (22-32); Chloride 99 mmol/L (98-107); Estimated Glomerular Filt Rate 57 mL/min (>60); Globulin 3.1 g/dL (1.7-4.1); Glucose 145 mg/dL (80-110); HEMOLYSIS < 15 (0-50); Potassium 3.9 mmol/L (3.4-5.1); Sodium 130 mmol/L (137-145); Total Protein 7.4 g/dL (6.3-8.2)
== END ==
PROVIDERS: PCP Family Medicine; Referring Provider Family Medicine; Visit Provider Family Medicine
DX: E87.5 Hyperkalemia (principal); R94.4 Abnormal results of kidney function studies
CPT/HCPCS: 36415; 80053

== ENCOUNTER → 2024-09-23 10:31 | Outpatient (CLI) | payer MEDICARE, OTHER, SELFPAY ==
--- NOTE | 2024-09-23 10:30 | DI.NM.S_ITS ---
PROCEDURE: NM ELVIA PERF SPECT R&S PHARM Rest and pharmacological stress myocardial perfusion SPECT with gated imaging and ejection fraction RADIOPHARMACEUTICAL: 27.0 mCi Tc-99m tetrafosmin IV at rest and 25.0 mCi Tc-99m tetrafosmin IV at peak effect of pharmacological stress. Ney-boy-caurbgpg was performed. INDICATIONS: CAD TECHNIQUE: Radiopharmaceutical was injected at peak stress test, and also at rest. SPECT images were obtained. SPECT myocardial perfusion images were displayed in short axis, horizontal long axis, and vertical long axis views. Gated images were reviewed using [employer] software. COMPARISON: None. CARDIAC STRESS: A pharmacologic stress test was performed under the supervision of an attending staff, using an infusion of regadenoson 0.4 mg IV. Hemodynamic data: There is normal blood pressure and heart rate response to pharmacologic stress. Symptoms: The patient denied anginal chest pain. EKG: No diagnostic changes of ischemia; no ectopy. FINDINGS: Raw data: There is good myocardial uptake of radiotracer. No significant motion artifacts. Qcac-wz-aziuh ratio is 0.54 (normal is less than 0.38 for tetrafosmin tracer). Left ventricle function: Gated images demonstrate normal left ventricular wall thickening. No segmental wall motion abnormalities. No transient ischemic dilation; TID is 1.08 (normal less than 1.3). Left ventricle resting end diastolic volume is 111 mL. Left ventricle stress ejection fraction is 73%; normal range is above 45%. Myocardial perfusion: There is normal distribution of activity in the right and left ventricular myocardium. No fixed or reversible perfusion defects. IMPRESSION: Low risk study. No evidence of pharmacologic induced ischemia or scar. Normal LV size and function. Dictated by: Shelly Salazar D.O. on 09/24/2024 at 16:10 Approved by: Shelly Salazar D.O. on 09/24/2024 at 16:12
== END ==
PROVIDERS: PCP Family Medicine; Referring Provider Nurse Practitioner; Visit Provider Nurse Practitioner
DX: I25.10 Atherosclerotic heart disease of native coronary artery without angina pectoris (principal)
CPT/HCPCS: 78452; 93017; A9502; J2785

== ENCOUNTER → 2024-10-22 12:35 | Outpatient (CLI) | payer MEDICARE, OTHER, SELFPAY ==
--- NOTE | 2024-10-22 12:37 | DI.ECHO.S_ITS ---
[facility] : : [id number] : [place] : : [id number] : : Phone: [phone] Echocardiogram Report + + :Name: CARMEL GIRALDO Study Date: 10/22/2024 Height: 65 in : :Hospital ReadingLocation: Weight: 158 lb : : Gender: Male BSA: 1.8 m2 : :: 1945 Age: 79 yrs BP: 114/69 mmHg: :Reason For Study: CAD : :Ordering Physician: ALEX, : :DORA Ortiz Performed By: Jonathan Wallace : :Referring: DORA JOHNSON W : + + Interpretation Summary The left ventricle is normal in size. The left ventricular ejection fraction is normal. The ejection fraction is estimated to be 60-65%. No significant change in LVEF from the previous study. The right ventricle is at the upper limits of normal in size. The right ventricular systolic function is normal. The peak aortic velocity is 2.67 m/sec. The aortic valve mean gradient is 15.4 mmHg. The peak aortic velocity on the previous exam was 2.09 m/sec. The calculated aortic valve area is 1.4 cm2. sev ratio: 0.49. There is a heavy nodular calcification of predominantly noncoronary cusp. Morphologically no significant aortic stenosis. Overall mild to moderate aortic stenosis. There is mild tricuspid regurgitation. The right ventricular systolic pressure is estimated to be at least 21 mmHg based on an estimated right atrial pressure of 3 mm Hg. Procedure: A two-dimensional transthoracic echocardiogram with color flow and Doppler was performed. The study quality was technically good. Comparison is made with the echocardiogram of 12/08/2021. The patient was in normal sinus rhythm during the exam. Left Ventricle: The left ventricle is normal in size. Left ventricular wall thickness is mildly increased. There is no thrombus. The ejection fraction is estimated to be 60-65%. The left ventricular ejection fraction is normal. There are no focal wall motion abnormalities. Diastolic parameters suggest a relaxation abnormality of the left ventricle, consistent with probable normal filling pressures. Right Ventricle: The right ventricle is at the upper limits of normal in size. The right ventricular systolic function is normal. Atria: The left atrial size is normal. There has been no significant change since the previous study. Right atrial size is normal. There is no Doppler evidence for an interatrial shunt. Mitral Valve: The mitral valve leaflets appear mildly thickened, but open well. There is moderate mitral annular calcification. No significant mitral valve stenosis. There is trace mitral regurgitation. Aortic Valve: The aortic valve is trileaflet. The aortic valve is moderately calcified. There is a heavy nodular calcification of predominantly noncoronary cusp. Morphologically no significant aortic stenosis. Overall mild to moderate aortic stenosis. There is moderate aortic stenosis. The peak aortic velocity is 2.67 m/sec. The aortic valve mean gradient is 15.4 mmHg. The calculated aortic valve area is 1.4 cm2. The peak aortic velocity on the previous exam was 2.09 m/sec. No aortic regurgitation is present. Tricuspid Valve: The tricuspid valve is not well visualized, but is grossly normal. There is mild tricuspid regurgitation. The right ventricular systolic pressure is estimated to be at least 21 mmHg based on an estimated right atrial pressure of 3 mm Hg. Pulmonic Valve: The pulmonic valve is not well seen, but is grossly normal. There is trace pulmonic regurgitation. Great Vessels: The aortic root is normal size. The dimensions of the ascending aorta are normal. The pulmonary artery is normal size. The IVC is of normal diameter and collapses greater than 50% with a sniff. This suggests a low right atrial pressure of 3 mm Hg. Pericardium/ Pleura There is no pericardial effusion. There is no pleural effusion. MMode/2D Measurements & Calculations LVIDd: 4.3 cm LVOT diam: 1.9 cm LVIDs: 2.7 cm Ao root diam: 3.2 cm FS: 37.5 % asc Aorta Diam: 3.3 cm EPSS: 0.80 cm Ao Arch Diam (Prox Trans): 1.7 cm IVSd: 1.1 cm LVPWd: 1.1 cm LV fong. diameter/BSA (cm/m^2): 2.4 LV sys. diameter/BSA (cm/m^2): 1.5 LA A2 area: 14.3 cm2 RA long axis: 4.1 cm LA A4 area: 19.1 cm2 RA area: 12.8 cm2 LA length (vol): 5.0 cm RA vol: 34.2 ml LA vol: 45.9 ml RA : 19.1 ml/m2 LA vol index: 25.6 ml/m2 IVC diam: 1.1 cm RVD1 (basal): 4.1 cm RVD2 (mid): 3.7 cm TAPSE: 1.7 cm Doppler Measurements & Calculations Ao V2 max: 267.0 cm/sec LVOT Max Daniel: 120.6 cm/sec Ao V2 mean: 185.0 cm/sec LV V1 max P.8 mmHg Ao max P.5 mmHg LV V1 VTI: 27.3 cm Ao mean P.4 mmHg RENATO(I,D): 1.4 cm2 Ao V2 VTI: 56.3 cm RENATO(V,D): 1.3 cm2 sev ratio: 0.49 RENATO indexed to BSA (cm^2/m^2): 0.79 MV E max daniel: 74.0 cm/sec TR max daniel: 211.4 cm/sec MV A max daniel: 77.2 cm/sec TR max P.9 mmHg MV E/A: 0.96 PA V2 max: 85.2 cm/sec Med Peak E' Daniel: 6.8 cm/sec PA V2 mean: 57.8 cm/sec E/E' med: 10.8 PA mean P.5 mmHg Lat Peak E' Danile: 9.0 cm/sec PA pr(Accel): 20.8 mmHg E/E' lat: 8.2 E/e' average: 9.5 MV dec time: 0.27 sec SV(LVOT): 79.5 ml Reading Physician:02:10 PM
== END ==
PROVIDERS: PCP Family Medicine; Referring Provider Nurse Practitioner; Visit Provider Nurse Practitioner
DX: I08.3 Combined rheumatic disorders of mitral, aortic and tricuspid valves (principal); R06.02 Shortness of breath
CPT/HCPCS: 93306

== ENCOUNTER → 2024-11-07 12:07 | Outpatient (CLI) | payer MEDICARE, OTHER, SELFPAY ==
--- NOTE | 2024-11-07 12:10 | DI.CT.S_ITS ---
PROCEDURE: CT PEL WO CON INDICATIONS: SI Joint dysfunction TECHNIQUE: Noncontrast 3 mm axial sections acquired through the bony pelvis, with coronal and sagittal reformatting. COMPARISON: None. FINDINGS: Image quality: Excellent. Bones: There is moderate right and mild to moderate left sacroiliac chronic appearing degenerative change. No fracture found. Soft tissues: Moderate-sized fat containing right inguinal hernia extending along the spermatic cord inferiorly. No bowel involvement, no evidence of incarceration or strangulation of this portion of the omentum. 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 No trauma. Moderate-sized fat containing right inguinal hernia as discussed above. Chronicity is uncertain. Dictated by: Miquel Monet M.D. on 11/07/2024 at 13:08 Approved by: Miquel Monet M.D. on 11/07/2024 at 13:10
== END ==
PROVIDERS: PCP Family Medicine; Referring Provider Neurological Surgery; Visit Provider Neurological Surgery
DX: M53.88 Other specified dorsopathies, sacral and sacrococcygeal region (principal); M47.898 Other spondylosis, sacral and sacrococcygeal region; K40.90 Unilateral inguinal hernia, without obstruction or gangrene, not specified as recurrent
CPT/HCPCS: 72192

== ENCOUNTER → 2025-03-02 07:12 | Outpatient (CLI) | payer MEDICARE, OTHER, SELFPAY ==
[2025-03-02 08:29] LABS: HEMOLYSIS < 15 (0-50)
[2025-03-02 08:36] LABS: Alanine Aminotransferase 19 IU/L (<50); Albumin 4.2 g/dL (3.5-5.0); Albumin Globulin Ratio 1.6 (1.0-2.8); Alkaline Phosphatase 81 U/L (38-126); Blood Urea Nitrogen 17 mg/dL (9-20); Calcium 9.5 mg/dL (8.4-10.2); Carbon Dioxide 28 mmol/L (22-32); Chloride 98 mmol/L (98-107); Cholesterol 143 mg/dL (140-199); Estimated Glomerular Filt Rate > 60 mL/min (>60); Globulin 2.6 g/dL (1.7-4.1); Glucose 103 mg/dL (70-99); HDL Cholesterol 48 mg/dL (40-60); Potassium 5.4 mmol/L (3.4-5.1); Sodium 134 mmol/L (137-145); Total Protein 6.8 g/dL (6.3-8.2); Triglycerides 161 mg/dL (35-150)
[2025-03-02 09:07] LABS: TSH w/ Reflex to FT4 0.12 uIU/mL (0.47-4.68)
[2025-03-02 10:34] LABS: Free T4, Direct Thyroxine 0.89 ng/dL (0.78-2.19)
== END ==
PROVIDERS: PCP Family Medicine; Referring Provider Family Medicine; Visit Provider Nurse Practitioner
DX: E78.5 Hyperlipidemia, unspecified (principal); Z12.5 Encounter for screening for malignant neoplasm of prostate; I10 Essential (primary) hypertension; E03.9 Hypothyroidism, unspecified
CPT/HCPCS: 36415; 80053; 80061; 84439; 84443; G0103

== ENCOUNTER → 2025-04-22 07:51 | Outpatient (CLI) | payer MEDICARE, OTHER, SELFPAY ==
[2025-04-22 09:21] LABS: Blood Urea Nitrogen 16 mg/dL (9-20); Calcium 9.2 mg/dL (8.4-10.2); Carbon Dioxide 26 mmol/L (22-32); Chloride 99 mmol/L (98-107); Estimated Glomerular Filt Rate > 60 mL/min (>60); Glucose 98 mg/dL (70-99); HEMOLYSIS < 15 (0-50); Potassium 5.0 mmol/L (3.4-5.1); Sodium 135 mmol/L (137-145)
[2025-04-22 09:33] LABS: Free T4, Direct Thyroxine 0.95 ng/dL (0.78-2.19)
[2025-04-22 09:46] LABS: Thyroid Stimulating Hormone 1.19 uIU/mL (0.47-4.68)
== END ==
PROVIDERS: PCP Family Medicine; Referring Provider Internal Medicine Cardiovascular Disease; Visit Provider Internal Medicine Cardiovascular Disease
DX: E03.9 Hypothyroidism, unspecified (principal); E87.5 Hyperkalemia
CPT/HCPCS: 36415; 80048; 84439; 84443